=== PATIENT | male | born 1935 | race Caucasian/White ===

== ENCOUNTER 2016-09-25 14:50 | Inpatient (IN) | payer MEDICARE, OTHER ==
[2016-09-25 15:30] LABS: Hematocrit 33 % (42-52); Hemoglobin 10.5 g/dl (14.0-18.0); Mean Corpuscular HGB Conc 32 g/dl (31-36); Mean Corpuscular Hemoglobin 26 pg (27-31); Mean Corpuscular Volume 82 fL (80-94); Mean Platelet Volume 8 um3 (7.4-10.4); Red Blood Count 4.05 10^6/ul (4.0-5.4); Red Cell Distribution Width 17 % (10.5-15)
[2016-09-25 15:34] LABS: Add Diff/Slide Review? Slide Review Added; Comments Flag Yes
[2016-09-25 15:51] LABS: Albumin 3.5 g/dL (3.2-5.2); BUN/Creatinine Ratio 14.7 (8-20); Calcium 8.6 mg/dL (8.6-10.3); EGFR African American 37.7 (>60); EGFR Non-African American 29.3 (>60); Globulin 2.6 g/dL (2-4); Total Bilirubin 0.9 mg/dL (0.2-1.0); Total Protein 6.1 g/dL (6.4-8.9); Troponin I 0.06 ng/mL (<0.04)
[2016-09-25 16:12] LABS: Add Path Review? YES; Neutrophil % 36 % (38-83); Reactive Lymph % 10 % (0-6)
--- NOTE | 2016-09-25 18:05 | RAD ---
HISTORY: Shortness of breath COMPARISONS: May 14, 2015 VIEWS: 2: Frontal dual-energy and lateral views of the chest. FINDINGS: CARDIOMEDIASTINAL SILHOUETTE: The cardiomediastinal silhouette is normal. JUANITO: The juanito are normal. PLEURA: The costophrenic angles are sharp. No pleural abnormalities are noted. LUNG PARENCHYMA: There is hyperinflation with flattening of the diaphragm and expansion of the AP diameter of the chest. ABDOMEN: The upper abdomen is clear. There is no subphrenic gas. BONES AND SOFT TISSUES: Degenerative changes are noted along the spine. OTHER: None. IMPRESSION: HYPERINFLATION, CONSISTENT WITH COPD. NO ACTIVE CARDIOPULMONARY DISEASE.
--- NOTE | 2016-09-25 19:51 | RAD ---
HISTORY: Shortness of breath COMPARISON: Chest x-ray dated September 25, 2016 TECHNIQUE: Pulmonary ventilation/perfusion scintigraphy was performed with dynamic cine images and multiple planar images. DOSE: Ventilation: Xenon-133 15.95 millicuries, administered at 7:00 PM on May 28, 2016 Perfusion: Technetium 99m microaggregated albumin 6.5 millicuries, administered at 7:20 PM on September 25, 2016 FINDINGS: Ventilation: Homogeneous without defect Perfusion: There are multiple bilateral subsegmental and segmental defects without matching ventilation defect IMPRESSION: MULTIPLE BILATERAL SEGMENTAL AND SUBSEGMENTAL UNMATCHED PERFUSION DEFECTS. HIGH PROBABILITY FOR PE. PRELIMINARY FINDINGS WERE DISCUSSED WITH DR. WILSON IN THE EMERGENCY DEPARTMENT AT APPROXIMATELY 7:46 PM ON OCTOBER 25, 2016.
[2016-09-25] MEDS ORDERED: Heparin VIAL(*) 5000 UNITS/ML VIAL (FIVE THOUSAND) IV SCH (21:00)
[2016-09-25] MEDS: Heparin DRIP 25,000 UNITS(*) 25,000 UNITS/500 ML BAG IV SCH ×2 (22:08→23:36)
--- NOTE | 2016-09-25 22:28 | RAD ---
HISTORY: Pulmonary embolism COMPARISONS: None relevant TECHNIQUE: Multiple transverse and longitudinal ultrasound images were obtained of the bilateral lower extremities from the level of the common femoral vein inferiorly through to the infrapopliteal veins using grayscale, color Doppler, and spectral Doppler imaging with and without compression and with augmentation. FINDINGS: VEINS: There is occlusive thrombus within the right popliteal vein extending inferiorly into the calf veins. The venous system of the left lower extremity is compressible throughout its course, with normal flow on color Doppler imaging and normal response to augmentation on spectral Doppler imaging. SOFT TISSUES: Unremarkable. OTHER FINDINGS: None. IMPRESSION: 1. OCCLUSIVE THROMBUS OF THE RIGHT POPLITEAL VEIN EXTENDING INTO THE CALF. 2. NO LEFT LOWER EXTREMITY DEEP VEIN THROMBOSIS
[2016-09-25 23:04] LABS: Comments Flag Yes; Hematocrit 34 % (42-52); Hemoglobin 10.5 g/dl (14.0-18.0); Mean Corpuscular HGB Conc 31 g/dl (31-36); Mean Corpuscular Hemoglobin 26 pg (27-31); Mean Corpuscular Volume 83 fL (80-94); Mean Platelet Volume 9 um3 (7.4-10.4); Red Blood Count 4.06 10^6/ul (4.0-5.4); Red Cell Distribution Width 17 % (10.5-15)
[2016-09-25 23:06] LABS: Add Diff/Slide Review? Slide Review Added; White Blood Count 52.4 10^3/ul (3.5-10.8)
--- NOTE | 2016-09-25 23:30 | HP ---
CC: Dr. Shy Brasher * HISTORY AND PHYSICAL: DATE OF ADMISSION: 09/25/16 CHIEF COMPLAINT: Shortness of breath. HISTORY OF PRESENT ILLNESS: The patient is an 81-year-old gentleman with past medical history significant for CLL, who presents to [facility] with chief complaint of shortness of breath. he has had the shortness of breath for sometime, but something changed today. He used to get short of breath on exertion, but today he was bringing boxes up from the basement as he is planning on moving to [facility] and all of a sudden something suddenly happened where he felt the change. He cannot place a finger on what happened. He denied any chest pain or pressure. However, he did feel increasingly worse with shortness of breath. He had no palpitations. He was not sweating. He had no fever. He has not noticed any increased swelling in either extremity or any pain in his extremities. The patient was taken to the ER where he was evaluated, had a V/Q scan, which showed a high probability for a PE. 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 CURRENT MEDICATIONS: Include only Cardura 8 mg at bedtime. ALLERGIES: He has an allergy/adverse reaction to SULFA DRUGS. FAMILY HISTORY: Significant for father who of leukemia. SOCIAL HISTORY: No tobacco. Rare alcohol with wine. No recreational drug use. He is . He has 2 daughters. His , Saige Sierra, is his healthcare proxy. REVIEW OF SYSTEMS: A 14-point review of systems was completed with the patient. All pertinent positives and negatives are in the history of present illness, otherwise it is negative. PHYSICAL EXAMINATION GENERAL: Pleasant gentleman, lying in bed, in no acute distress. VITAL SIGNS: Blood pressure 150/81, pulse ox 93%, heart rate 69 beats per minute, respiratory rate is 22 breaths per minute, temperature 98.4 degrees. HEENT: Normocephalic, atraumatic. Pupils are equal, round, and reactive to light. Moist mucous membranes. NECK: Supple. No JVD, bruits, palpable thyroid, or lymphadenopathy. CHEST: Clear to auscultation and percussion bilaterally. CARDIOVASCULAR: S1, S2 appreciated. Regular rate and rhythm. ABDOMEN: Positive bowel sounds in all 4 quadrants. Soft, nontender, and nondistended. EXTREMITIES: No cyanosis, clubbing or edema. +2 peripheral pulses bilaterally. NEUROLOGIC: Alert and oriented x3. Moves all extremities. SKIN: No rashes or abnormalities. LAB DATA/IMAGING STUDIES: White count is 47, hemoglobin 10.5, hematocrit 33, platelets are 150, neutrophils 36, lymphocytes 53, reactive lymphs 10. Sodium 137, potassium 5.0, chloride 109, bicarb 23, BUN 32, creatinine 2.17, glucose is 98. Troponin 0.01. D-dimer is greater than 1050. EKG shows normal sinus rhythm at 69 beats per minute, left axis deviation. No acute ST T-wave changes. Chest x-ray was interpreted by Radiology as hyperinflation consistent with no active cardiopulmonary disease. V/Q scan was interpreted by Radiology as multiple bilateral segmental and subsegmental unmatched perfusion defects. High probability for PE. ASSESSMENT AND PLAN: 1. Pulmonary embolism. Discussed with the patient. He will decide what oral anticoagulant he wants to go on tomorrow and discuss with his PCP, Dr. Shy Brasher. For now, I will put him on heparin drip. I will place on telemetry. I will get transthoracic echocardiogram and venous duplex in the morning. 2. Benign prostatic hypertrophy. Continue Cardura. 3. Chronic lymphocytic leukemia. Higher white count but this could certainly be a leukemoid reaction or response to his pulmonary embolism. We will monitor. 4. FEN. Regular diet. 5. DVT prophylaxis. heparin drip. 6. The patient is a full code. TIME SPENT: Over 80 minutes were spent on this H and P, more than 45 minutes of which was spent in direct [id number] contact with the patient in evaluation , physical exam, counseling, and coordination of care. [id number]/CPS #: [id number] MTDD
[2016-09-25] MEDS: DOXAZOSIN 8 MG PO SCH (23:55)
[2016-09-26] MEDS: Heparin DRIP 25,000 UNITS(*) 25,000 UNITS/500 ML BAG IV SCH ×2 (07:50→17:34)
[2016-09-26] MEDS ORDERED: Heparin VIAL(*) 5000 UNITS/ML VIAL (FIVE THOUSAND) IV SCH (08:00)
[2016-09-26 08:56] LABS: Hematocrit 35 % (42-52); Hemoglobin 11.1 g/dl (14.0-18.0); Mean Corpuscular HGB Conc 32 g/dl (31-36); Mean Corpuscular Hemoglobin 26 pg (27-31); Mean Corpuscular Volume 83 fL (80-94); Mean Platelet Volume 8 um3 (7.4-10.4); Red Blood Count 4.26 10^6/ul (4.0-5.4); Red Cell Distribution Width 16 % (10.5-15); White Blood Count 51.3 10^3/ul (3.5-10.8)
[2016-09-26 08:59] LABS: Add Diff/Slide Review? Slide Review Added; Comments Flag Yes
[2016-09-26 09:56] LABS: Neutrophil % 32 % (38-83); Reactive Lymph % 4 % (0-6)
[2016-09-26 09:57] LABS: Add Path Review? YES
[2016-09-26] MEDS ORDERED: Warfarin TAB(*) 5 MG PO ONE (11:00)
--- NOTE | 2016-09-26 14:12 | ED ---
morenita Olivo Timothy, scribed for Jason Camejo MD on 09/25/16 at 1505 . Shortness of Breath - HPI Summary HPI Summary: Nakul Kate is an 81 yo male presenting to [facility] with SOB since this morning. He states he was completely exhausted by carrying several small packages to his basement. 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 He denies pain through any of the episode. He states he may have seen a small flash prior to his dyspnea episode. He denies any swelling of his lower extremities. His MHx includes HTN, kidney stones, BPH, arthritis, possible gout per Pt, and tobacco use. - History of Current Complaint Time Seen by Provider: 09/25/16 14:58 Hx Obtained From: Patient Onset/Duration: Sudden Onset, Still Present Current Severity: Moderate Dyspnea At: Exertion - Allergy/Home Medications Allergies/Adverse Reactions: Allergies Allergy/AdvReac Type Severity Reaction Status Date / Time Sulfa Drugs Allergy Rash Verified 09/25/16 20:24 PMH/Surg Hx/FS Hx/Imm Hx Endocrine/Hematology History: Denies: Hx Diabetes, Hx Thyroid Disease Cardiovascular History: Reports: Hx Hypertension Denies: Hx Pacemaker/ICD Respiratory History: Denies: Hx Asthma, Hx Chronic Obstructive Pulmonary Disease (COPD) GI History: Denies: Hx Ulcer History: Reports: Hx Benign Prostatic Hyperplasia, Hx Kidney Stones Denies: Hx Renal Disease Musculoskeletal History: Reports: Hx Arthritis, Hx Gout - possibly, per pt. Sensory History: Denies: Hx Contacts or Glasses - glasses at home, Hx Hearing Aid Opthamlomology History: Denies: Hx Contacts or Glasses - glasses at home Psychiatric History: Denies: Hx Panic Disorder - Cancer History Cancer Type, Location and Year: CLL - Surgical History Surgery Procedure, Year, and Place: APPENDECTOMY. SINUS Infectious Disease History: Denies: Hx Hepatitis, Hx Human Immunodeficiency Virus (HIV), History Other Infectious Disease, Traveled Outside the [place] in Last 30 Days - Family History Known Family History: Negative: Cardiac Disease, Hypertension, Diabetes Family History: FHx of cancer-related illnesses. - Social History Alcohol Use: Daily Alcohol Amount: Wine with dinner Hx Substance Use: No Substance Use Type: Reports: None Hx Tobacco Use: Yes Smoking Status (MU): Former Smoker Review of Systems Constitutional: Negative Eyes: Negative ENT: Negative Cardiovascular: Negative Positive: Shortness Of Breath Gastrointestinal: Negative Genitourinary: Negative Musculoskeletal: Negative Skin: Negative Neurological: Negative Psychological: Normal All Other Systems Reviewed And Are Negative: Yes Physical Exam Triage Information Reviewed: Yes Vital Signs On Initial Exam: Initial Vitals Temp Pulse Resp BP Pulse Ox 98.4 F 80 22 160/70 95 09/25/16 14:57 09/25/16 14:57 09/25/16 14:57 09/25/16 14:57 09/25/16 14:57 Vital Signs Reviewed: Yes Appearance: Positive: Well-Appearing, No Pain Distress, Well-Nourished Skin: Positive: Warm, Skin Color Reflects Adequate Perfusion, Dry Head/Face: Positive: Normal Head/Face Inspection Eyes: Positive: Normal ENT: Positive: Normal ENT inspection Neck: Positive: Supple, Nontender Respiratory/Lung Sounds: Positive: Clear to Auscultation, Breath Sounds Present Cardiovascular: Positive: RRR Abdomen Description: Positive: Nontender, Soft Bowel Sounds: Positive: Present Musculoskeletal: Positive: Other - mild pitting edema in RLE ankle Neurological: Positive: Normal Psychiatric: Positive: Normal, Affect/Mood Appropriate Diagnostics - Vital Signs Vital Signs Temp Pulse Resp BP Pulse Ox 09/25/16 14:57 98.4 F 80 22 160/70 95 - Laboratory Lab Results: Lab Results 09/25/16 09/25/16 09/25/16 Range/Units 15:20 15:20 15:20 WBC 47.0 H (3.5-10.8) 10^3/ul RBC 4.05 (4.0-5.4) 10^6/ul Hgb 10.5 L (14.0-18.0) g/dl Hct 33 L (42-52) % MCV 82 (80-94) fL MCH 26 L (27-31) pg MCHC 32 (31-36) g/dl RDW 17 H (10.5-15) % Plt Count 150 (150-450) 10^3/ul MPV 8 (7.4-10.4) um3 Neut % (Auto) 20.9 L (38-83) % Lymph % (Auto) 76.2 H (25-47) % [place] % (Auto) 2.3 (1-9) % Eos % (Auto) 0.2 (0-6) % Baso % (Auto) 0.4 (0-2) % Absolute Neuts (auto) 9.8 H (1.5-7.7) 10^3/ul Absolute Lymphs (auto) 35.8 H (1.0-4.8) 10^3/ul Absolute Monos (auto) 1.1 H (0-0.8) 10^3/ul Absolute Eos (auto) 0.1 (0-0.6) 10^3/ul Absolute Basos (auto) 0.2 (0-0.2) 10^3/ul Absolute Nucleated RBC 0.14 10^3/ul Neutrophils % 36 L (38-83) % Lymphocytes % 53 H (25-47) % Reactive Lymphs % 10 H (0-6) % Monocytes % 1 (0-13) % Nucleated RBC % 0.3 Differential Comment Normal RBC Morphology Not Reportable Hem Pathologist Commnt Pending D-Dimer, Quantitative (Less Than 230) ng/mL Sodium 137 (133-145) mmol/L Potassium 5.0 (3.5-5.0) mmol/L Chloride 109 (101-111) mmol/L Carbon Dioxide 23 (22-32) mmol/L Anion Gap 5 (2-11) mmol/L BUN 32 H (6-24) mg/dL Creatinine 2.17 H (0.67-1.17) mg/dL Est GFR ( Amer) 37.7 (>60) Est GFR (Non-Af Amer) 29.3 (>60) BUN/Creatinine Ratio 14.7 (8-20) Glucose 98 (70-100) mg/dL Lactic Acid 0.6 (0.5-2.0) mmol/L Calcium 8.6 (8.6-10.3) mg/dL Total Bilirubin 0.90 (0.2-1.0) mg/dL AST 13 (13-39) U/L ALT 6 L (7-52) U/L Alkaline Phosphatase 68 (34-104) U/L Troponin I 0.06 H* (<0.04) ng/mL Total Protein 6.1 L (6.4-8.9) g/dL Albumin 3.5 (3.2-5.2) g/dL Globulin 2.6 (2-4) g/dL Albumin/Globulin Ratio 1.3 (1-3) /15/17 Range/Units 15:20 WBC (3.5-10.8) 10^3/ul RBC (4.0-5.4) 10^6/ul Hgb (14.0-18.0) g/dl Hct (42-52) % MCV (80-94) fL MCH (27-31) pg MCHC (31-36) g/dl RDW (10.5-15) % Plt Count (150-450) 10^3/ul MPV (7.4-10.4) um3 Neut % (Auto) (38-83) % Lymph % (Auto) (25-47) % [place] % (Auto) (1-9) % Eos % (Auto) (0-6) % Baso % (Auto) (0-2) % Absolute Neuts (auto) (1.5-7.7) 10^3/ul Absolute Lymphs (auto) (1.0-4.8) 10^3/ul Absolute Monos (auto) (0-0.8) 10^3/ul Absolute Eos (auto) (0-0.6) 10^3/ul Absolute Basos (auto) (0-0.2) 10^3/ul Absolute Nucleated RBC 10^3/ul Neutrophils % (38-83) % Lymphocytes % (25-47) % Reactive Lymphs % (0-6) % Monocytes % (0-13) % Nucleated RBC % Differential Comment Normal RBC Morphology Hem Pathologist Commnt D-Dimer, Quantitative > 1050 H (Less Than 230) ng/mL Sodium (133-145) mmol/L Potassium (3.5-5.0) mmol/L Chloride (101-111) mmol/L Carbon Dioxide (22-32) mmol/L Anion Gap (2-11) mmol/L BUN (6-24) mg/dL Creatinine (0.67-1.17) mg/dL Est GFR ( Amer) (>60) Est GFR (Non-Af Amer) (>60) BUN/Creatinine Ratio (8-20) Glucose (70-100) mg/dL Lactic Acid (0.5-2.0) mmol/L Calcium (8.6-10.3) mg/dL Total Bilirubin (0.2-1.0) mg/dL AST (13-39) U/L ALT (7-52) U/L Alkaline Phosphatase (34-104) U/L Troponin I (<0.04) ng/mL Total Protein (6.4-8.9) g/dL Albumin (3.2-5.2) g/dL Globulin (2-4) g/dL Albumin/Globulin Ratio (1-3) Result Diagrams: 09/26/16 08:30 09/26/16 08:30 Lab Statement: Any lab studies that have been ordered have been reviewed, and results considered in the medical decision making process. - Radiology CXR Xray Interpretation: No Acute Changes - IMPRESSION: HYPERINFLATION, CONSISTENT WITH COPD. NO ACTIVE CARDIOPULMONARY DISEASE. Radiology Interpretation Completed By: Radiologist VQ Xray Interpretation: Positive (See Comments) - IMPRESSION: MULTIPLE BILATERAL SEGMENTAL AND SUBSEGMENTAL UNMATCHED PERFUSION DEFECTS. HIGH PROBABILITY FOR PE. Radiology Interpretation Completed By: Radiologist - EKG 1601 Cardiac Rate: NL - 69 BPM EKG Interpretation: NSR @ 69 BPM, no ST elevation, normal EKG. Re-Evaluation - Re-Evaluation First Eval Re-Evaluation Time: 15:45 Change: Unchanged Comment: Pt states he remembered that last night while sleeping he felt slightly SOB, and that while walking through the ED and he feels SOB. He recalls that he had similar Sx when he was in his 30's, and was worked up at a hospital and no cause was found. Second Eval Re-Evaluation Time: 19:50 Change: Unchanged Comment: Pt is informed of results of VQ scan, and is agreeable to be admitted. Course/Dx - Course Assessment/Plan: Humble Sierra is an 81 yo male presenting to [facility] with an episode of SOB earlier this morning. Pt medication list is reviewed this visit. Of note is his WBC of 47, and his troponin of 0.06. His EKG suggests NSR WNL. His CXR suggests no active cardiopulmonary disease. After clinical examination and review of his lab and imaging studies, as well as discussion with Sher HITCHCOCK, he will be admitted to [facility] for respiratory insufficiency. At the time of admission his VQ scan is pending. His H&P suggests PE. 1946 - Dr. Abbott (radiology) - discussed results of VQ scan high probability of PE. 1803 - Dr. Abbott (radiology) - requested permission for VQ scan, permission was granted. 1914 - Sher Benitez (hospitalist) - discussed Pt condition and admits Pt. - Diagnoses Provider Diagnoses: Respiratory insufficiency, Pulmonary embolism - Physician Notifications Discussed Care of Patient With: Shy Brasher - Discussed Pt condition, recommends CXR and VQ scan Time Discussed With Above Provider: 17:33 Instructed by Provider To: Admit As Inpatient - Critical Care Time Critical Care Time: 30-74 min Discharge - Discharge Plan Condition: Stable Disposition: ADMITTED TO [facility] Discharge Disposition Comment: admission for respiratory insufficency The documentation as recorded by the morenita villavicencio Timothy accurately reflects the service I personally performed and the decisions made by me, Jason Camejo MD.
--- NOTE | 2016-09-26 17:40 | ECHO ---
Patient: KALEB [place] [facility] Rec#: [id number] : 1935 Date: 09/26/2016 Age: 81y Height: 177.8 cm / 70.0 in Weight: 78 kg / 171.9 lbs Sex: M BSA: 1.96 Room#: [facility] Admit Date#: 09/25/2016 Type: Inpatient Referring: Jeffrey Funk MD Reading: Dayne Ortez MD Marketing Automation Analyst: Fabiana Wright RN RDCS CC: Shy Brasher MD Transthoracic Echocardiogram Indication: Pulmonary embolism BP: 146/65 HR: 72 Rhythm: NSR Findings History: HTN, CLL, renal mass with nephrectomy, CKD Technical Comments: The study quality is good. Completed at 1700. Left Ventricle: The left ventricular chamber size is normal. Mild concentric left ventricular hypertrophy is observed.sigmoid septum without significant obstruction. Global left ventricular wall motion and contractility are within normal limits. There is normal left ventricular systolic function. The estimated ejection fraction is 60-65%. There is an E to A reversal in the mitral valve flow pattern suggestive of diastolic dysfunction. Left Atrium: The left atrial chamber size is normal. Right Ventricle: The right ventricle wall thickness is mildly increased.at .7-.8 mm The right ventricular cavity size is normal. The right ventricular global systolic function is normal. Right Atrium: The right atrial cavity size is normal. There is evidence of an atrial septal aneurysm. Aortic Valve: The aortic valve is trileaflet. The aortic valve leaflets are mildly thickened. There is mild to moderate aortic regurgitation. There is no evidence of aortic stenosis. Mitral Valve: The mitral valve leaflets are mildly thickened. There is a trace of mitral regurgitation. There is no evidence of mitral stenosis. Tricuspid Valve: The tricuspid valve leaflets are normal. There is mild tricuspid regurgitation. There is evidence of moderate pulmonary hypertension. There is no tricuspid stenosis. Pulmonic Valve: The pulmonic valve appears normal. There is a trace pulmonic regurgitation. There is no pulmonic stenosis. Pericardium: There is a small pericardial effusion. There are no signs of significant hemodynamic compromise. A pericardial fat pad is visualized. Aorta: There is no dilatation of the ascending aorta. There is no dilatation of the aortic arch. There is no dilation of the aortic root. Pulmonary Artery: The main pulmonary artery appears normal. Venous: The inferior vena cava is dilated. There is a greater than 50% respiratory change in the inferior vena cava dimension. Summary: There was not any prior study for comparison. Conclusions Mild concentric left ventricular hypertrophy is observed.sigmoid septum without significant obstruction. The estimated ejection fraction is 60-65%. There is an E to A reversal in the mitral valve flow pattern suggestive of diastolic dysfunction. The right ventricle wall thickness is mildly increased.at .7-.8 mm There is evidence of an atrial septal aneurysm. The aortic valve leaflets are mildly thickened. There is mild to moderate aortic regurgitation. There is a trace of mitral regurgitation. There is mild tricuspid regurgitation. There is evidence of moderate pulmonary hypertension. There is a minimal pericardial effusion, may be physiologic. There are no signs of significant hemodynamic compromise. A pericardial fat pad is visualized. Measurements Name Value Normal Range RVIDd (AP) 2D 2.3 cm (0.9 - 2.6) RVDdMajor (2D) 3.8 cm (2.2 - 4.4) RVAW (2D) 0.5 cm (0.2 - 0.5) RAd ISD 4CH 4.4 cm (3.4 - 4.9) RA (A4C)W 3.7 cm (2.9 - 4.6) IVSd (2D) 1.2 cm (0.6 - 1) LVPWd (2D) 1.1 cm (0.6 - 1) LVIDd (2D) 3.9 cm (3.6 - 5.4) LVIDs (2D) 2.4 cm - LV FS (2D) 38 % (25 - 45) Aortic Annulus 2.1 cm (1.4 - 2.6) Ao root diameter (2D) 2.3 cm (2.1 - 3.5) Ascending Ao 3.4 cm (2.1 - 3.4) Aortic arch 2.9 cm (1.8 - 3.4) LA dimension (AP) 2D 3.6 cm (2.3 - 3.8) LAd ISD 4CH 4 cm (2.9 - 5.3) LA ISD 4CH W 4.2 cm (2.5 - 4.5) Name Value Normal Range LA ESV SP 4CH (A/L) 41 ml - LA ESV SP 2CH (A/L) 47 ml - LA ESV BP (A/L) 45 ml - LA ESV BP (A/L) index 23 ml/m2 - LA ESV SP 4CH (MOD) 37 ml - LA ESV SP 2CH (MOD) 44 ml - Name Value Normal Range MV E-wave Vmax 0.71 m/sec - MV deceleration time 195 msec - MV A-wave Vmax 0.89 m/sec - MV E:A ratio 0.8 ratio - LV septal e' Vmax 0.09 m/sec - LV lateral e' Vmax 0.08 m/sec - LV E:e' septal ratio 7.9 ratio - LV E:e' lateral ratio 8.9 ratio - Name Value Normal Range AV Vmax 1.4 m/sec - AV VTI 30 cm - AV peak gradient 8 mmHg - AV mean gradient 4.4 mmHg - LVOT Vmax 1.4 m/sec - LVOT VTI 26 cm - LVOT peak gradient 7.4 mmHg - LVOT mean gradient 3.4 mmHg - MARIANA Vmax 0.6 m/sec - Name Value Normal Range TR Vmax 3.2 m/sec - TR peak gradient 41 mmHg - RAP 8 mmHg - RVSP 49 mmHg - IVC diameter 2.3 cm - Name Value Normal Range PV Vmax 0.71 m/sec -
[2016-09-26] MEDS: DOXAZOSIN 8 MG PO SCH (21:52)
[2016-09-26] MEDS ORDERED: [UNRECOGNIZED DRUG - OTHER] PO SCH (22:30)
[2016-09-27 07:51] LABS: Hematocrit 33 % (42-52); Hemoglobin 10.5 g/dl (14.0-18.0); Mean Corpuscular HGB Conc 32 g/dl (31-36); Mean Corpuscular Hemoglobin 27 pg (27-31); Mean Corpuscular Volume 82 fL (80-94); Mean Platelet Volume 8 um3 (7.4-10.4); Red Blood Count 3.98 10^6/ul (4.0-5.4); Red Cell Distribution Width 17 % (10.5-15); White Blood Count 44.3 10^3/ul (3.5-10.8)
[2016-09-27 07:54] LABS: BUN/Creatinine Ratio 12.6 (8-20); Calcium 8.7 mg/dL (8.6-10.3); EGFR African American 38.1 (>60); EGFR Non-African American 29.6 (>60); Potassium 4.4 mmol/L (3.5-5.0)
[2016-09-27 07:58] LABS: Add Diff/Slide Review? Slide Review Added; Comments Flag Yes
[2016-09-27 09:24] LABS: Neutrophil % 36 % (38-83); Reactive Lymph % 3 % (0-6)
[2016-09-27] MEDS ORDERED: Warfarin TAB(*) 7.5 MG PO ONE (11:00)
[2016-09-27] MEDS: Heparin DRIP 25,000 UNITS(*) 25,000 UNITS/500 ML BAG IV SCH (13:12)
[2016-09-27] MEDS ORDERED: DOXAZOSIN 8 MG PO SCH (21:00)
[2016-09-28] MEDS: Heparin DRIP 25,000 UNITS(*) 25,000 UNITS/500 ML BAG IV SCH (08:09)
[2016-09-28 08:37] LABS: Hematocrit 33 % (42-52); Hemoglobin 10.6 g/dl (14.0-18.0); Mean Corpuscular HGB Conc 32 g/dl (31-36); Mean Corpuscular Hemoglobin 27 pg (27-31); Mean Corpuscular Volume 84 fL (80-94); Mean Platelet Volume 9 um3 (7.4-10.4); Red Blood Count 3.97 10^6/ul (4.0-5.4); Red Cell Distribution Width 17 % (10.5-15); White Blood Count 40.4 10^3/ul (3.5-10.8)
[2016-09-28 08:39] LABS: Add Diff/Slide Review? Slide Review Added; Comments Flag Yes
[2016-09-28 08:58] LABS: EGFR African American 37.9 (>60); EGFR Non-African American 29.5 (>60)
[2016-09-28 09:58] VITALS: BP 136/55
[2016-09-28] MEDS ORDERED: Enoxaparin(*) 80 MG/0.8 ML SYR SUBCUT ONE (12:00)
--- NOTE | 2016-09-29 02:22 | DS ---
CC: Dr. Batres; Dr. Jolley; Dr. Kenny; Dr. Carter, [facility] * DISCHARGE SUMMARY: DATE OF ADMISSION: 09/25/16 DATE OF DISCHARGE: 09/28/16 DISCHARGE DIAGNOSES: 1. Pulmonary emboli. 2. Deep venous thrombosis of the lower extremities. 3. Chronic kidney disease with proteinuria, stage 3B/4. 4. Elevated blood pressure, with history of hypertension. 5. Left ventricular hypertrophy and diastolic dysfunction, mild atrial septal aneurysm on echo. 6. Anemia of chronic disease. 7. Chronic lymphocytic leukemia. 8. History of kidney cancer, status post right nephrectomy. 9. Palindromic rheumatism. 10. Pancreatic cyst. 11. History of allergic rhinitis. 12. Benign prostatic hypertrophy. HISTORY: Humble Sierra is an 81-year-old man admitted with shortness of breath. He was found to have pulmonary emboli. Please see the dictated admission note for details of the present illness, past medical history, family history, social and personal history, review of systems, and physical examination. DIAGNOSTIC STUDIES/LAB DATA: Admission CBC: WBC 47, H and H 10.5/33, PLT 150K , he had a right shift. White count subsequently went up to 52.4 on September 25, was down to 40.4 on September 28. H and H remained relatively stable. INR started at 1.06 on September 26, was 1.05 on September 28. D-dimer was greater than 1050. PTT was elevated due to heparin infusion. Chemistries on admission, sodium 137, potassium 5.0, chloride 109, CO2 23, BUN and creatinine 32/2.17, glucose 98. Rest of the comprehensive metabolic panel was normal. Troponin was 0.06, repeated 0.06. Lactic acid was normal at 0.6. BUN and creatinine was 27/2.15 on September 27; 29/2.16 on September 28. Imaging: Chest x-ray on September 25 showed hyperinflation, no acute disease. V/ Q lung scan on September 25 showed multiple bilateral segmental and subsegmental unmatched perfusion defects, high probability for PE. Venous Doppler study on September 25 of the lower extremities showed occlusive thrombus of the right popliteal vein extending into the calf. EKG on September 25, showed sinus rhythm, abnormal R-wave progression, early transition, otherwise normal. Echocardiogram, on September 26, showed mild concentric LVH, EF 60% to 65%, diastolic dysfunction noted. Atrial septal aneurysm, mild thickening of the aortic valve leaflets, vope-eu-kyoessye aortic regurgitation, trace mitral regurgitation, mild tricuspid regurgitation, evidence of moderate pulmonary hypertension, minimal pericardial effusion. HOSPITAL COURSE: The patient was initially admitted and placed on heparin drip , telemetry, started on warfarin. He was continued on Cardura for his BPH. He was a full code. It was felt that he was not a good candidate for a direct thrombin inhibitor because of his renal insufficiency, so it was elected to use warfarin for him. He improved clinically. His doses of warfarin were 5 mg on September 26, 7.5 mg on September 27. His INR did not go up. It was decided that he could go home on enoxaparin and warfarin. He is being discharged on 09/28/16. His heparin drip was stopped and he received his first enoxaparin dose prior to discharge. DIET: Usual with consistent vitamin K. ACTIVITY: As tolerated. MEDICATIONS: 1. Warfarin 5 mg today and tomorrow and then as directed. 2. Enoxaparin 80 mg subcutaneously daily, start tomorrow at noon. 3. Cardura 8 mg at bedtime. Consideration will be given at the time of his appointment depending on his blood pressure of starting him on GRECIA inhibitor or an ARB. INR will be checked on 09/30/16 when he will be following up with me and he should call [phone] to get an appointment. [id number]/[facility] #: [id number] CHIDI
== END 2016-09-28 12:15 | disposition home or self-care (01) | DRG 176 ==
LOC: ED 14:50 → MEDTELE 20:54 → MED 09-28 04:08
PROVIDERS: ADMIT Internal Medicine; ATTEND Internal Medicine Geriatric Medicine
DX: I26.99 Other pulmonary embolism without acute cor pulmonale (principal); C91.10 Chronic lymphocytic leukemia of B-cell type not having achieved remission; N18.4 Chronic kidney disease, stage 4 (severe); I82.431 Acute embolism and thrombosis of right popliteal vein; N40.0 Benign prostatic hyperplasia without lower urinary tract symptoms; I12.9 Hypertensive chronic kidney disease with stage 1 through stage 4 chronic kidney disease, or unspecified chronic kidney disease; D63.1 Anemia in chronic kidney disease; M12.30 Palindromic rheumatism, unspecified site; J30.9 Allergic rhinitis, unspecified; I27.2 Other secondary pulmonary hypertension; I35.1 Nonrheumatic aortic (valve) insufficiency; Z85.528 Personal history of other malignant neoplasm of kidney; Z90.5 Acquired absence of kidney; Z79.899 Other long term (current) drug therapy; Z88.2 Allergy status to sulfonamides; Z80.6 Family history of leukemia
CPT/HCPCS: 36415; 71020; 78582; 80048; 80053; 82565; 83605; 84484; 84520; 85025; 85060; 85379; 85610; 85730; 93005; 93306; 93970; A9270-GY; A9540; A9558; J1644; J1650

== ENCOUNTER 2022-12-28 09:58 | Observation (INO) ==
[2022-12-28] MEDS ORDERED: Lactated Ringers 1000 ml BAG 1,000 ML IV ONE (10:03)
[2022-12-28 10:35] LABS: INR 2.05 (0.83-1.13)
[2022-12-28 10:36] LABS: Hematocrit 38.1 % (38-53); Hemoglobin 12.7 g/dL (13.2-16.3); Mean Corpuscular Hemoglobin 27.8 pg (27-33); Mean Corpuscular Hgb Conc 33.4 g/dL (31-36); Mean Corpuscular Volume 83.4 fL (80-97); Mean Platelet Volume 7.5 fL (7.5-11.2); Platelet Count 188 10^3/uL (150-450); Red Blood Count 4.58 10^6/uL (4.06-5.63); Red Cell Distribution Width 16.4 % (12-17); White Blood Count 15.2 10^3/uL (3.6-10.2)
[2022-12-28 10:44] LABS: Albumin 3.9 g/dL (3.2-5.2); Calcium 8.7 mg/dL (8.6-10.3); Potassium 4.6 mmol/L (3.5-5.0); Total Bilirubin 0.5 mg/dL (0.2-1.0)
[2022-12-28 10:50] LABS: Albumin/Globulin Ratio 1.5 (1-3); C Reactive Protein 6.61 mg/L (<8.01); Creatinine, Serum 2.56 mg/dL (0.67-1.17); Globulin 2.6 g/dL (2-4); Total Protein 6.5 g/dL (6.4-8.9); eGFR CKD-EPI 23.6 (>60)
[2022-12-28 11:38] LABS: Urine Appearance Turbid; Urine Bacteria 1+ (Absent); Urine Bilirubin Negative (Negative); Urine Blood 2+ (Negative); Urine Glucose Negative (Negative); Urine Ketones Negative (Negative); Urine Nitrite Negative (Negative); Urine Protein 2+(100 mg/dL) (Negative); Urine Red Blood Cell 3+(>10/hpf) (Absent); Urine Specific Gravity 1.015 (1.002-1.030); Urine Urobilinogen Negative (Negative); Urine White Blood Cell Trace(0-5/hpf) (Absent)
[2022-12-28 11:48] LABS: RBC Morphology Normal (Normal)
[2022-12-28 11:49] LABS: ABS Basophils 0.1 10^3/uL (0.0-0.1); ABS Eosinophils 0.2 10^3/uL (0.0-0.5); ABS Lymphocytes 9.9 10^3/uL (1.0-4.8); ABS Monocytes 0.4 10^3/uL (0.0-1.1); ABS Neutrophils 4.7 10^3/uL (1.5-7.6); ABS Nucleated RBC 0.08 10^3/ul; Lymphocyte % 65.1 %; Nucleated Red Blood Cells % 0.5 /100 WBC (0.0-0.4)
[2022-12-28 11:52] LABS: Urine Color Red
[2022-12-28] MEDS ORDERED: Lidocaine 2% JELLY 6 ML Topical TOPICAL ONE (15:59)
[2022-12-28] MEDS ORDERED: Lidocaine 2% JELLY 20 ML (for OR use) ONE (15:59)
[2022-12-28] MEDS: NS 0.9% 1000 ml BAG 1,000 ML IV SCH (18:28)
[2022-12-28] MEDS ORDERED: DOXAZOSIN 8 MG PO SCH ×2 (21:00→21:31)
[2022-12-28] MEDS ORDERED: Polyethylene Glycol 3350 17 GM PACKET PO PRN (21:28)
[2022-12-28] MEDS ORDERED: CMCS: Solifenacin 5 mg TAB (NF) PO SCH (22:00)
[2022-12-28] MEDS ORDERED: Senna/Docusate 8.6/50 mg (NF) TAB PO SCH (22:00)
[2022-12-28] MEDS ORDERED: Docusate LIQ 100 MG/10 ML UDC PO SCH (22:00)
[2022-12-28] MEDS ORDERED: Senna TAB 8.6 mg TAB PO SCH (22:00)
[2022-12-29] MEDS: NS 0.9% 1000 ml BAG 1,000 ML IV SCH (04:42)
[2022-12-29 06:00] LABS: Hematocrit 33.2 % (38-53); Hemoglobin 11.3 g/dL (13.2-16.3); Mean Corpuscular Hemoglobin 28.2 pg (27-33); Mean Platelet Volume 7.6 fL (7.5-11.2); Platelet Count 167 10^3/uL (150-450); White Blood Count 15.5 10^3/uL (3.6-10.2)
[2022-12-29 06:04] LABS: INR 2.03 (0.83-1.13)
[2022-12-29 06:12] LABS: Calcium 8.1 mg/dL (8.6-10.3); Creatinine, Serum 2.28 mg/dL (0.67-1.17); Potassium 4.5 mmol/L (3.5-5.0); eGFR CKD-EPI 27.1 (>60)
[2022-12-29 08:06] LABS: ABS Eosinophils 0.2 10^3/uL (0.0-0.5); ABS Lymphocytes 10.6 10^3/uL (1.0-4.8); ABS Monocytes 0.5 10^3/uL (0.0-1.1); ABS Neutrophils 4.1 10^3/uL (1.5-7.6); ABS Nucleated RBC 0.03 10^3/ul; Eosinophil % 1.3 %; Lymphocyte % 68.5 %; Nucleated Red Blood Cells % 0.2 /100 WBC (0.0-0.4)
[2022-12-29] MEDS ORDERED: Senna TAB 8.6 mg TAB PO SCH (09:00)
[2022-12-29] MEDS ORDERED: Solifenacin 10 mg TAB (NF) PO SCH (09:00)
[2022-12-29 11:43] VITALS: BP 140/57
== END 2022-12-29 12:37 | disposition home or self-care (01) ==
LOC: EDHOLD 09:58 → ED 09:58 → SUATTDRO 14:01 → MEDTELE 15:15
PROVIDERS: ADMIT Pediatrics; ATTEND Internal Medicine